=== PATIENT | male | born 1980 | race Caucasian/White ===

== ENCOUNTER 2016-09-03 20:49 | Emergency (ER) | payer MEDICAID ==
[~2016-09-03] VITALS: Ht 175.3 cm; Wt 65.0 kg
[~2016-09-03 20:49] MED LIST: CEPH-367 PO; DOCU-30 PO; ENOX40SY4 SQ; HYDR-3240 PO; IBUP-1222 PO; OXYC5TAB3 PO; SULF1TAB24 PO
[2016-09-03 20:57] VITALS: BP 118/77
== END 2016-09-03 22:35 | disposition home or self-care (01) ==
LOC: ED 21:28
DX: S05.42XA Penetrating wound of orbit with or without foreign body, left eye, initial encounter (principal); S01.21XA Laceration without foreign body of nose, initial encounter; S01.511A Laceration without foreign body of lip, initial encounter; G31.2 Degeneration of nervous system due to alcohol; W22.8XXA Striking against or struck by other objects, initial encounter; Y93.89 Activity, other specified; Y92.410 Unspecified street and highway as the place of occurrence of the external cause; Y99.8 Other external cause status; Z59.0 Homelessness
CPT/HCPCS: 70450; 70486; 99284

== ENCOUNTER 2016-10-11 12:36 | Emergency (ER) | payer MEDICAID ==
[2016-10-11] MEDS ORDERED: DIPH,PERTUSS(ACELL),TET VAC/PF 0.5 ML IM-VACC ONE (14:17)
[2016-10-11] MEDS ORDERED: DIPHTHERIA-TETANUS ADULT 0.5ML IM-VACC ONE (14:30)
[2016-10-11 16:39] VITALS: BP 118/76
== END 2016-10-11 16:44 | disposition home or self-care (01) ==
LOC: ED 16:38
DX: F10.229 Alcohol dependence with intoxication, unspecified (principal); F12.20 Cannabis dependence, uncomplicated; Z88.8 Allergy status to other drugs, medicaments and biological substances; Z88.6 Allergy status to analgesic agent
CPT/HCPCS: 36415; 70450; 70486; 72125; 80307; 90471; 90714

== ENCOUNTER 2016-10-17 20:55 | Emergency (ER) | payer MEDICAID ==
[~2016-10-17] VITALS: Ht 172.7 cm; Wt 66.0 kg
[2016-10-17 20:57] VITALS: BP 161/92
[2016-10-17] MEDS ORDERED: BACITRACIN ZINC OINT 500U/GM, 0.9 GM ONE (23:05)
== END 2016-10-17 23:13 | disposition home or self-care (01) ==
LOC: ED 23:07
DX: S00.81XA Abrasion of other part of head, initial encounter (principal); S00.31XA Abrasion of nose, initial encounter; X58.XXXA Exposure to other specified factors, initial encounter; Y93.89 Activity, other specified; Y92.410 Unspecified street and highway as the place of occurrence of the external cause; Y99.8 Other external cause status
CPT/HCPCS: 70450; 99284

== ENCOUNTER 2016-10-20 21:47 | Emergency (ER) | payer MEDICAID ==
[~2016-10-20] VITALS: Ht 172.7 cm; Wt 72.0 kg
[2016-10-21 01:15] VITALS: BP 103/56
== END 2016-10-21 02:33 | disposition home or self-care (01) ==
LOC: ED 10-21 02:27
DX: F10.221 Alcohol dependence with intoxication delirium (principal)
CPT/HCPCS: 99283

== ENCOUNTER 2017-04-02 23:29 | Emergency (ER) | payer MEDICAID ==
[~2017-04-02] VITALS: Ht 167.6 cm; Wt 68.7 kg
[~2017-04-02 23:29] MED LIST changes: +DOCU-131 PO; -DOCU-30 PO
[2017-04-02 23:30] VITALS: BP 135/90
== END 2017-04-03 01:29 | disposition home or self-care (01) ==
LOC: ED 23:59
DX: S62.354A Nondisplaced fracture of shaft of fourth metacarpal bone, right hand, initial encounter for closed fracture (principal); S62.356A Nondisplaced fracture of shaft of fifth metacarpal bone, right hand, initial encounter for closed fracture; F10.29 Alcohol dependence with unspecified alcohol-induced disorder; W22.01XA Walked into wall, initial encounter; Y93.89 Activity, other specified; Y92.488 Other paved roadways as the place of occurrence of the external cause; Y99.8 Other external cause status
CPT/HCPCS: 29125; 99284

== ENCOUNTER 2017-08-30 01:19 | Emergency (ER) | payer MEDICAID ==
[~2017-08-30] VITALS: Ht 170.2 cm; Wt 68.0 kg
[2017-08-30 01:21] VITALS: BP 152/86
== END 2017-08-30 03:06 | disposition home or self-care (01) ==
LOC: ED 02:20
DX: M25.571 Pain in right ankle and joints of right foot (principal); F10.20 Alcohol dependence, uncomplicated
CPT/HCPCS: 99284

== ENCOUNTER 2017-09-03 01:09 | Emergency (ER) | payer MEDICAID ==
[~2017-09-03] VITALS: Ht 172.7 cm; Wt 70.6 kg
[2017-09-03 01:27] VITALS: BP 128/83
== END 2017-09-03 03:36 | disposition home or self-care (01) ==
LOC: ED 03:28
DX: S69.81XA Other specified injuries of right wrist, hand and finger(s), initial encounter (principal); F10.20 Alcohol dependence, uncomplicated; F17.200 Nicotine dependence, unspecified, uncomplicated; G89.11 Acute pain due to trauma; Y04.0XXA Assault by unarmed brawl or fight, initial encounter; Y92.098 Other place in other non-institutional residence as the place of occurrence of the external cause; Y93.89 Activity, other specified; Y99.8 Other external cause status; Z60.9 Problem related to social environment, unspecified; Z91.14 Patient's other noncompliance with medication regimen; Z72.89 Other problems related to lifestyle
CPT/HCPCS: 70450; 70486; 72125; 99284

== ENCOUNTER 2017-10-21 12:17 | Emergency (ER) | payer MEDICAID ==
[~2017-10-21] VITALS: Ht 172.7 cm; Wt 63.8 kg
[2017-10-21 14:38] VITALS: BP 128/78
== END 2017-10-21 14:41 | disposition home or self-care (01) ==
LOC: ED 12:43
DX: F10.220 Alcohol dependence with intoxication, uncomplicated (principal); F17.200 Nicotine dependence, unspecified, uncomplicated
CPT/HCPCS: 99283

== ENCOUNTER 2017-12-07 06:21 | Emergency (ER) | payer MEDICAID ==
[~2017-12-07] VITALS: Ht 170.2 cm; Wt 75.0 kg
[2017-12-07 06:23] VITALS: BP 132/92
== END 2017-12-07 08:58 | disposition home or self-care (01) ==
LOC: ED 08:46
DX: S00.83XA Contusion of other part of head, initial encounter (principal); Y04.0XXA Assault by unarmed brawl or fight, initial encounter; Y93.89 Activity, other specified; Y92.410 Unspecified street and highway as the place of occurrence of the external cause; Y99.8 Other external cause status
CPT/HCPCS: 70100; 99284

== ENCOUNTER 2017-12-25 22:00 | Emergency (ER) | payer MEDICAID ==
[~2017-12-25] VITALS: Ht 170.2 cm; Wt 139.0 kg
[2017-12-25 22:10] VITALS: BP 119/73
== END 2017-12-25 23:44 | disposition home or self-care (01) ==
LOC: ED 23:38
DX: K05.229 Aggressive periodontitis, generalized, unspecified severity (principal); F10.20 Alcohol dependence, uncomplicated
CPT/HCPCS: 70100; 99284

== ENCOUNTER 2017-12-30 10:37 | Emergency (ER) | payer MEDICAID ==
[~2017-12-30] VITALS: Ht 170.2 cm; Wt 62.9 kg
[2017-12-30 10:45] VITALS: BP 129/75
== END 2017-12-30 11:55 | disposition home or self-care (01) ==
LOC: ED 11:14
DX: K05.10 Chronic gingivitis, plaque induced (principal); K13.79 Other lesions of oral mucosa; F10.20 Alcohol dependence, uncomplicated; Z76.0 Encounter for issue of repeat prescription
CPT/HCPCS: 99283

== ENCOUNTER 2018-01-02 23:59 | Emergency (ER) | payer MEDICAID ==
[~2018-01-02] VITALS: Ht 170.2 cm; Wt 62.6 kg
[2018-01-03 00:04] VITALS: BP 132/92
== END 2018-01-03 00:56 | disposition home or self-care (01) ==
LOC: ED 01-03 00:27
DX: B35.3 Tinea pedis (principal); Z72.9 Problem related to lifestyle, unspecified
CPT/HCPCS: 99282

== ENCOUNTER 2018-01-07 01:41 | Emergency (ER) | payer MEDICAID ==
[~2018-01-07] VITALS: Ht 170.2 cm; Wt 65.0 kg
[2018-01-07 01:49] VITALS: BP 116/89
== END 2018-01-07 04:37 | disposition home or self-care (01) ==
LOC: ED 02:44
DX: S62.356A Nondisplaced fracture of shaft of fifth metacarpal bone, right hand, initial encounter for closed fracture (principal); G89.11 Acute pain due to trauma; Z72.9 Problem related to lifestyle, unspecified; F17.200 Nicotine dependence, unspecified, uncomplicated; W19.XXXA Unspecified fall, initial encounter; Y93.89 Activity, other specified; Y92.89 Other specified places as the place of occurrence of the external cause; Y99.8 Other external cause status
CPT/HCPCS: 29125; 99284

== ENCOUNTER 2018-01-21 04:22 | Emergency (ER) | payer MEDICAID ==
[~2018-01-21] VITALS: Ht 167.6 cm; Wt 65.0 kg
[2018-01-21 04:28] VITALS: BP 104/61
== END 2018-01-21 05:31 | disposition home or self-care (01) ==
LOC: ED 04:25
DX: G89.29 Other chronic pain (principal); M79.672 Pain in left foot; M79.671 Pain in right foot; F10.129 Alcohol abuse with intoxication, unspecified
CPT/HCPCS: 99283

== ENCOUNTER 2018-05-26 15:04 | Emergency (ER) | payer MEDICAID ==
[~2018-05-26] VITALS: Ht 172.7 cm; Wt 70.0 kg
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
--- NOTE | 2018-05-26 15:39 | NUR ---
pt back from ct scan. pt in bilateral upper extremity locking restraints. ekg done and presented to md. pt placed on bp, cardiac, and cont. pulse oximeter.
--- NOTE | 2018-05-26 15:40 | NUR ---
report given to mira holliday
[2018-05-26 15:59] LABS: BASOPHILS # (AUTO) 0.05 x10^3/uL (0-0.1); BASOPHILS % (AUTO) 1 % (0-1); EOSINOPHILS # (AUTO) 0.19 x10^3/uL (0-0.4); EOSINOPHILS % (AUTO) 2 % (1-7); LYMPHOCYTES # (AUTO) 2.21 x10^3/uL (1-3.4); LYMPHOCYTES % (AUTO) 26 % (22-44); MD NO; MEAN CORPUSCULAR HGB CONC 33.4 g/dL (33.2-36.2); MEAN CORPUSCULAR VOLUME 92.6 fL (81-97); MEAN PLATELET VOLUME 9.1 fL (7.4-10.4); MONOCYTES # (AUTO) 0.65 x10^3/uL (0.2-0.8); MONOCYTES % (AUTO) 8 % (2-9); NEUTROPHILS % (AUTO) 64 % (42-75); PLATELET COUNT 271 x10^3/uL (130-400); RED CELL DISTRIBUTION WIDTH 13.5 % (9.4-14.8)
[2018-05-26 16:08] LABS: ALBUMIN 3.9 g/dL (3.4-5.0); ANION GAP 6 mmol/L (5-15); CALCIUM 8.2 mg/dL (8.5-10.1); CHLORIDE 114 mmol/L (98-107); CREATININE 0.82 mg/dL (0.7-1.3)
--- NOTE | 2018-05-26 16:14 | NUR ---
PT REMAINS IN BILAT WRIST RESTRAINTS. AROUSABLE TO PAINFUL. CONFUSED. ABLE TO MAINTAIN PATENT AIRWAY. CP MONITORS IN PLACE. HOB ELEVATED. RESP EVEN AND UNLABORED.
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
--- NOTE | 2018-05-26 18:31 | NUR ---
PT IN RESTRAINTS. RESTING ON GURNEY. AROUSABLE TO PAINFUL STIM. NOT APPROPRIATE FOR REMOVAL OF RESTRAINTS AT THIS TIME. HOB ELEVATED. CP MONITORS IN PLACE. RESPEVEN AND UNLABORED.
--- NOTE | 2018-05-26 19:05 | NUR ---
care assumed from yocasta meyers. new restraint order signed by dr erickson at 4 hr aimee of pt being in restraints and placed on pt chart. pt continues to swing at staff when aroused, WCTM, CMS remains intact to 2 limbs in leather restraints.
--- NOTE | 2018-05-26 19:06 | NUR ---
REPORT TO JEREMIE LAW.
[2018-05-26 19:18] VITALS: BP 119/85
--- NOTE | 2018-05-26 20:45 | NUR ---
pt able to ambulate, gcs 15. pt discharged
--- NOTE | 2018-05-26 20:46 | NUR ---
pt awake at this time, attempting to ambulate
== END 2018-05-26 22:46 | disposition home or self-care (01) ==
LOC: ED 22:43
DX: S01.111A Laceration without foreign body of right eyelid and periocular area, initial encounter (principal); S09.8XXA Other specified injuries of head, initial encounter; R41.82 Altered mental status, unspecified; F10.120 Alcohol abuse with intoxication, uncomplicated; R53.83 Other fatigue; W22.8XXA Striking against or struck by other objects, initial encounter; Y93.89 Activity, other specified; Y92.410 Unspecified street and highway as the place of occurrence of the external cause; Y99.8 Other external cause status
CPT/HCPCS: 12011; 36415; 70450; 70486; 72125; 80048; 80307; 82040; 85025; 93005; 99284

== ENCOUNTER 2018-10-23 22:49 | Emergency (ER) | payer MEDICAID ==
[~2018-10-23] VITALS: Ht 170.2 cm; Wt 65.9 kg
[2018-10-23 22:56] VITALS: BP 97/57
[2018-10-24] MEDS ORDERED: HYDROcodone/APAP 5/325 TABLET PO ONE (01:00)
[2018-10-24] MEDS ORDERED: HYDROcodone/APAP 5/325 TABLET ONE (01:18)
== END 2018-10-24 01:23 | disposition home or self-care (01) ==
LOC: ED 23:14
DX: G89.11 Acute pain due to trauma (principal); M25.521 Pain in right elbow; Z76.0 Encounter for issue of repeat prescription; W19.XXXA Unspecified fall, initial encounter; Y93.89 Activity, other specified; Y92.410 Unspecified street and highway as the place of occurrence of the external cause; Y99.8 Other external cause status
CPT/HCPCS: 99282

== ENCOUNTER 2018-11-22 03:00 | Emergency (ER) | payer MEDICAID ==
[~2018-11-22] VITALS: Ht 165.1 cm; Wt 59.1 kg
[2018-11-22 03:02] VITALS: BP 138/81
== END 2018-11-22 03:30 | disposition home or self-care (01) ==
LOC: ED 03:20
DX: M79.671 Pain in right foot (principal); Z72.9 Problem related to lifestyle, unspecified
CPT/HCPCS: 99283

== ENCOUNTER 2018-11-29 17:12 | Emergency (ER) | payer MEDICAID ==
[~2018-11-29] VITALS: Ht 172.7 cm; Wt 61.0 kg
--- NOTE | 2018-11-29 18:29 | NUR ---
PT RESTING IN [facility] AND MED STUDENT AT [facility]. URINE COLLECTED AND TAKEN TO LAB
[2018-11-29 18:55] LABS: BASOPHILS # (AUTO) 0.04 x10^3/uL (0-0.1); BASOPHILS % (AUTO) 1 % (0-1); EOSINOPHILS # (AUTO) 0.13 x10^3/uL (0-0.4); EOSINOPHILS % (AUTO) 2 % (1-7); LYMPHOCYTES # (AUTO) 1.38 x10^3/uL (1-3.4); LYMPHOCYTES % (AUTO) 16 % (22-44); MD NO; MEAN CORPUSCULAR HEMOGLOBIN 31.1 pg (27.5-34.5); MEAN CORPUSCULAR HGB CONC 33.2 g/dL (33.2-36.2); MEAN CORPUSCULAR VOLUME 93.8 fL (81-97); MEAN PLATELET VOLUME 8.5 fL (7.4-10.4); MONOCYTES # (AUTO) 0.46 x10^3/uL (0.2-0.8); MONOCYTES % (AUTO) 5 % (2-9); NEUTROPHILS % (AUTO) 77 % (42-75); PLATELET COUNT 299 x10^3/uL (130-400); RED BLOOD COUNT 4.41 x10^6/uL (4.38-5.82)
[2018-11-29 19:04] LABS: ALBUMIN 3.7 g/dL (3.4-5.0); ANION GAP 5 mmol/L (5-15); CALCIUM 8.6 mg/dL (8.5-10.1); CHLORIDE 112 mmol/L (98-107); CREATININE 0.85 mg/dL (0.7-1.3)
[2018-11-29 19:04] LABS: MICROSCOPIC NOT IND
[2018-11-29 19:08] LABS: CULTURE INDICATED? NO
[2018-11-29 19:38] VITALS: BP 110/64
--- NOTE | 2018-11-29 19:38 | NUR ---
PT GIVEN FOOD
== END 2018-11-29 20:30 | disposition home or self-care (01) ==
LOC: ED 19:25
DX: G89.29 Other chronic pain (principal); R10.84 Generalized abdominal pain; F17.200 Nicotine dependence, unspecified, uncomplicated; F15.159 Other stimulant abuse with stimulant-induced psychotic disorder, unspecified; F10.10 Alcohol abuse, uncomplicated; Z72.9 Problem related to lifestyle, unspecified
CPT/HCPCS: 36415; 80048; 81003; 82040; 85025; 99283

== ENCOUNTER 2018-12-04 04:14 | Emergency (ER) | payer MEDICAID ==
[~2018-12-04] VITALS: Ht 172.7 cm; Wt 59.9 kg
[2018-12-04 04:16] VITALS: BP 121/70
== END 2018-12-04 05:29 | disposition home or self-care (01) ==
LOC: ED 05:20
DX: F10.150 Alcohol abuse with alcohol-induced psychotic disorder with delusions (principal)
CPT/HCPCS: 99281; 99284

== ENCOUNTER 2019-01-31 16:16 | Emergency (ER) | payer MEDICAID ==
[~2019-01-31] VITALS: Ht 167.6 cm; Wt 68.2 kg
[2019-01-31 16:21] VITALS: BP 112/71
--- NOTE | 2019-01-31 16:24 | NUR ---
PT BIB [facility] AFTER BEING FOUND OUTSIDE OF [facility]. PT DENIES HX AND DRUG USE. PT TOLD [facility] HE WANTED TO COME TO HOSPITAL FOR "BALL AND STOMACH XRAY" HE "FEELS LIKE COCK IS MISSING." PT CURRENTLY RESTING ON GURNEY OCCASIONALLY YELLING, ABLE TO MAKE CONVERSATION BUT IS USUALLY INAPPROPRIATE, STATING "I'M A [employer], THEY ARE MONITORING ME BY MY COCK." PT DENIES DRUG AND ALCHOHOL USE TODAY. VSS. NORRIS.
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
== END 2019-01-31 16:44 | disposition left against medical advice (07) ==
LOC: ED 16:38
DX: F29 Unspecified psychosis not due to a substance or known physiological condition (principal); F22 Delusional disorders; F17.200 Nicotine dependence, unspecified, uncomplicated; Z72.9 Problem related to lifestyle, unspecified
CPT/HCPCS: 99284